=== PATIENT | female | born 1990 | race Caucasian/White ===

== ENCOUNTER 2017-07-14 08:06 | Emergency (ER) | payer OTHER ==
[2017-07-14 08:17] VITALS: BP 124/77; PULSE 76; TEMP 98.2; BMI 38.0
[2017-07-14] MEDS ORDERED: traMADol HCL 50 MG TABLET PO ONE (08:49)
[2017-07-14] MEDS ORDERED: traMADol HCL 50 MG TABLET ONE (08:50)
--- NOTE | 2017-07-14 08:55 | PDOC ---
History of Present Illness - General Chief Complaint: Eye Problem Stated Complaint: RT EYE INJURY Time Seen by Provider: 07/14/17 08:48 History Source: Patient - History of Present Illness Timing/Duration: other (yesterday) Past History - Past Medical History Allergies/Adverse Reactions: Allergies Allergy/AdvReac Type Severity Reaction Status Date / Time No Known Allergies Allergy Verified 07/14/17 08:49 Home Medications: Ambulatory Orders Erythromycin 0.5% Eye Ointment [Erythromycin 0.5% Eye Ointment -] 1 applic OD ASDIR #1 tube 07/14/17 Tramadol HCl 50 mg PO Q6H #6 tablet MDD 200 mg 07/14/17 COPD: No - Suicide/Smoking/Psychosocial Hx Smoking History: Never smoked Have you smoked in the past 12 months: No Information on smoking cessation initiated: No Hx Alcohol Use: No Drug/Substance Use Hx: No Substance Use Type: None Review of Systems - Review of Systems HEENTM: Yes: Eye Pain, Tearing. No: Blurred Vision *Physical Exam - Vital Signs Last Vital Signs Temp Pulse Resp BP Pulse Ox 98.2 F 76 20 124/77 98 07/14/17 08:15 07/14/17 08:15 07/14/17 08:15 07/14/17 08:15 07/14/17 08:15 - Physical Exam General Appearance: Yes: Appropriately Dressed, Mild Distress HEENT: positive: Normal Voice, Other (+ tearing, no conjunc erythema, no fb on lid eversion, 3-4 mm uptake on desai lamp) Neck: positive: Supple Respiratory/Chest: negative: Respiratory Distress Integumentary: positive: Dry, Warm Neurologic: positive: Fully Oriented, Alert, Normal Mood/Affect Medical Decision Making - Medical Decision Making 07/14/17 08:55 26-year-old female, s/p remote bilateral lasix eye surgery, here with pain, photophobia and tearing to right eye status post injury yesterday. Patient states while opening her mail, a piece of paper struck right eye. Tetanus up-to -date. Patient in mild distress, sitting on stretcher with homemade eye patch overlying right eye. Has approximately 3-4 mm uptake in the 5-6 o'clock position on desai lamp, c/w corneal abrasion. Pain control in ED. Will DC with antibiotic ointment and referral to ophtho as needed *DC/Admit/Observation/Transfer Diagnosis at time of Disposition: Corneal abrasion Qualifiers: Encounter type: initial encounter Laterality: right Qualified Code(s): S05.01XA - Injury of conjunctiva and corneal abrasion without foreign body, right eye, initial encounter - Discharge Dispostion Disposition: HOME Condition at time of disposition: Improved - Prescriptions Prescriptions: Erythromycin 0.5% Eye Ointment [Erythromycin 0.5% Eye Ointment -] 1 applic OD ASDIR #1 tube Tramadol HCl 50 mg PO Q6H #6 tablet MDD 200 mg - Referrals - Patient Instructions Printed Discharge Instructions: DI for Corneal Abrasion Additional Instructions: Use eyedrops as directed. Follow-up with ophthalmology as needed - Post Discharge Activity
== END 2017-07-14 08:55 | disposition home or self-care (01) ==
LOC: JERFT 08:06
DX: S05.01XA Injury of conjunctiva and corneal abrasion without foreign body, right eye, initial encounter (principal); W22.8XXA Striking against or struck by other objects, initial encounter; Y93.89 Activity, other specified; Y92.9 Unspecified place or not applicable
CPT/HCPCS: 99281-25

== ENCOUNTER 2017-07-22 09:40 | Emergency (ER) | payer OTHER ==
[2017-07-22 09:50] VITALS: BP 140/84; PULSE 84; TEMP 98; BMI 43.8
--- NOTE | 2017-07-22 10:49 | PDOC ---
History of Present Illness - General Chief Complaint: Eye Problem Stated Complaint: EYE PROBLEM Time Seen by Provider: 07/22/17 10:06 History Source: Patient Exam Limitations: No Limitations - History of Present Illness Initial Comments: 07/22/17 10:44 Patient came for reevaluation of corneal abrasion. States had injury to right eye last week after incurring an injury with a paper cut. Continues to complain of mild pain and some visual changes. Denies fever, swelling, drainage, but states vision has not return to normal. Patient denies headache, earache sore throat, denies trauma or head trauma. Timing/Duration: unsure, 1 week Severity: mild, moderate Past History - Travel Traveled outside of the country in the last 30 days: No Close contact w/someone who was outside of country & ill: No - Past Medical History Allergies/Adverse Reactions: Allergies Allergy/AdvReac Type Severity Reaction Status Date / Time No Known Allergies Allergy Verified 07/22/17 09:50 Home Medications: Ambulatory Orders NK [No Known Home Medication] 07/22/17 COPD: No - Suicide/Smoking/Psychosocial Hx Smoking History: Never smoked Have you smoked in the past 12 months: No Hx Alcohol Use: No Drug/Substance Use Hx: No Substance Use Type: None Review of Systems - Review of Systems Able to Perform ROS?: Yes Is the patient limited Turkish proficient: Yes Constitutional: Yes: See HPI. No: Symptoms Reported, Fever, Loss of Appetite HEENTM: Yes: Symptoms Reported, See HPI, Eye Pain, Blurred Vision. No: Tearing , Recent change in vision, Double Vision, Ear Pain Respiratory: Yes: See HPI. No: Symptoms reported, Cough Musculoskeletal: Yes: Symptoms Reported Integumentary: Yes: Symptoms Reported *Physical Exam - Vital Signs Last Vital Signs Temp Pulse Resp BP Pulse Ox 98 F 84 18 140/84 99 07/22/17 09:47 07/22/17 09:47 07/22/17 09:47 07/22/17 09:47 07/22/17 09:47 - Physical Exam General Appearance: Yes: Nourished, Appropriately Dressed, Apparent Distress HEENT: positive: BARI, Normal ENT Inspection, TMs Normal, Pharynx Normal, Other (right eye without redness, injection, swelling, or drainage from eye.) Neck: positive: Supple. negative: Tender Respiratory/Chest: positive: Lungs Clear, Normal Breath Sounds Integumentary: positive: Normal Color, Dry, Warm Neurologic: positive: asset liability analyst II-XII NML intact, Fully Oriented, Alert, Normal Mood/ Affect, Normal Response, Motor Strength /5 Medical Decision Making - Medical Decision Making 07/22/17 10:47 Slit lamp exam reveals a 2 mm x 1 mm abrasion/? Scar midpoint pupil to right eye. No drainage, no ulceration noted *DC/Admit/Observation/Transfer Diagnosis at time of Disposition: Corneal scar, right eye - Discharge Dispostion Disposition: HOME Condition at time of disposition: Stable Admit: No - Referrals Referrals: Marcial Radford MD [Staff Physician] - - Patient Instructions Printed Discharge Instructions: DI for Corneal Abrasion Additional Instructions: Rest, avoid rubbing eyes Wash hands frequently as this is very contagious Wash hands, use eye lubricating drops as directed, wash hands after use Followup with ophthalmology or private physician as needed - Post Discharge Activity Forms/Work/School Notes: Back to Work
== END 2017-07-22 11:07 | disposition home or self-care (01) ==
LOC: JERFT 09:40
DX: S05.01XA Injury of conjunctiva and corneal abrasion without foreign body, right eye, initial encounter (principal); W45.8XXA Other foreign body or object entering through skin, initial encounter; W22.8XXA Striking against or struck by other objects, initial encounter; Y93.89 Activity, other specified; Y92.89 Other specified places as the place of occurrence of the external cause; Y99.8 Other external cause status
CPT/HCPCS: 99281-25